=== PATIENT | female | born 1960 | race Caucasian/White ===

== ENCOUNTER 2021-08-13 16:31 | Inpatient (IN) ==
[2021-08-13] MEDS ORDERED: *HR* Ticagrelor 90 MG TABLET PO ONE (16:37)
[2021-08-13] MEDS ORDERED: *HR* Heparin 5,000 UNIT/ML VIAL IVP ONE (16:37)
[2021-08-13] MEDS ORDERED: *HR* Heparin 5,000 UNIT/ML VIAL IVP PRN ×2 (16:37)
[2021-08-13] MEDS ORDERED: Heparin 25,000UNIT/250ML 1/2NS 25,000 UNIT/250 ML IV.SOLN IVC SCH (16:45)
[2021-08-13 16:51] LABS: Basophils # 0.1 K/mcL (0.0-0.2); Basophils % 0.7 %; Eosinophils # 0.1 K/mcL (0.0-0.6); Hematocrit 49.9 % (35.3-44.9); Hemoglobin 16.4 g/dL (11.5-15.4); Immature Granulocytes % 0.4 % (0-4); Lymphocytes # 2.8 K/mcL (0.6-4.6); Lymphocytes % 21.5 %; Mean Corpuscular HGB Conc 32.9 g/dL (31.6-35.5); Mean Corpuscular Hemoglobin 32.1 pg (28.0-33.3); Mean Corpuscular Volume 97.7 fL (83.0-100.0); Monocytes # 0.6 K/mcL (0.0-1.3); Monocytes % 4.4 %; Neutrophils # 9.5 K/mcL (1.6-8.9); Platelet Count 269 K/mcL (140-400); Red Blood Count 5.11 M/mcL (3.82-4.97); White Blood Count 13.1 K/mcL (4.3-11.1)
[2021-08-13 16:58] LABS: Prothrombin Time 10.9 Seconds (9.4-12.1)
[2021-08-13] MEDS ORDERED: Heparin 1,000 UNITS/500 mL 500 ML ONE (17:01)
[2021-08-13] MEDS ORDERED: Nitroglycerin 1,000 MCG/5 ML VIAL IV ONE (17:01)
[2021-08-13] MEDS ORDERED: Iopamidol - 370 200 ML INFUS..BTL ONE (17:01)
[2021-08-13] MEDS ORDERED: *HR* Heparin 10,000 UNIT/10 ML VIAL ONE (17:01)
[2021-08-13] MEDS ORDERED: 0.9 % Sodium Chloride 1,000 ML ONE ×3 (17:01→18:12)
[2021-08-13 17:11] LABS: Calcium 8.8 mg/dL (8.6-10.3); Magnesium 2.1 mg/dL (1.6-2.6); Potassium 4.4 mEq/L (3.5-5.1)
[2021-08-13] MEDS ORDERED: *HR* FentaNYL (PF) 100 MCG/2 ML VIAL ONE (17:11)
[2021-08-13] MEDS ORDERED: *HR* Midazolam HCl 2 MG/2 ML VIAL ONE (17:11)
[2021-08-13] MEDS ORDERED: methylPREDNISolone 125 MG/2 ML VIAL ONE (17:12)
[2021-08-13 17:18] LABS: Troponin I 0.05 ng/mL (< 0.04)
[2021-08-13] MEDS ORDERED: *HR* Atropine Sulfate 1 MG/10 ML SYRINGE ONE (17:33)
[2021-08-13] MEDS ORDERED: Tirofiban 12.5 MG/250ML 12.5 MG/250 ML BAG ONE (17:35)
[2021-08-14] MEDS ORDERED: Perflutren Lipid Microsphere 1.3 ML in 0.9 % Sodium Chloride 8.7 ML IVP PRN (08:16)
[2021-08-14] MEDS ORDERED: Naloxone 0.4 MG/ML INJ IVP PRN (08:17)
[2021-08-14] MEDS: *HR* Ticagrelor 90 MG TABLET PO SCH ×2 (09:33→20:08)
[2021-08-14] MEDS: *HR* Heparin 5,000 UNIT/ML VIAL SQ SCH ×2 (09:33→17:45)
[2021-08-14] MEDS: Aspirin Enteric Coated 81 MG Tablet PO SCH (09:33)
[2021-08-14] MEDS: Nicotine 21 MG PATCH.TD24 TD SCH (16:33)
[2021-08-15] MEDS: *HR* Heparin 5,000 UNIT/ML VIAL SQ SCH ×2 (05:31→17:36)
[2021-08-15] MEDS: Aspirin Enteric Coated 81 MG Tablet PO SCH (07:46)
[2021-08-15] MEDS: *HR* Ticagrelor 90 MG TABLET PO SCH ×2 (07:46→21:42)
[2021-08-15] MEDS: Nicotine 21 MG PATCH.TD24 TD SCH (07:46)
[2021-08-15 08:06] LABS: Basophils % 0.2 %; Eosinophils % 0.3 %; Hematocrit 46.8 % (35.3-44.9); Hemoglobin 15.1 g/dL (11.5-15.4); Immature Granulocytes % 0.4 % (0-4); Lymphocytes # 2.2 K/mcL (0.6-4.6); Lymphocytes % 16.2 %; Mean Corpuscular HGB Conc 32.3 g/dL (31.6-35.5); Mean Corpuscular Hemoglobin 31.4 pg (28.0-33.3); Mean Corpuscular Volume 97.3 fL (83.0-100.0); Mean Platelet Volume 10.9 fL (9.4-12.4); Monocytes # 0.9 K/mcL (0.0-1.3); Monocytes % 6.2 %; Neutrophils # 10.4 K/mcL (1.6-8.9); Platelet Count 229 K/mcL (140-400); Red Blood Count 4.81 M/mcL (3.82-4.97); Red Cell Distribution Width 13.2 % (11.5-14.5); Segmented Neutrophils % 76.7 %; White Blood Count 13.6 K/mcL (4.3-11.1)
[2021-08-15 08:51] LABS: Alanine Aminotransferase 28 Units/L (7-52); Albumin 3.8 g/dL (3.5-5.7); Albumin/Globulin Ratio 1.7 (1.1-2.2); Alkaline Phosphatase 52 Units/L (34-104); Aspartate Amino Transferase 66 Units/L (13-39); BUN/Creatinine Ratio 18 (6-26); Blood Urea Nitrogen 17 mg/dL (8-23); Calcium 9.1 mg/dL (8.6-10.3); Carbon Dioxide 25 mEq/L (23-29); Chloride 108 mEq/L (98-107); Chol/HDL Ratio 5.1 (0-4.9); Cholesterol 218 mg/dL (< 200); Globulin 2.3 g/dL (2.4-3.5); Glucose 101 mg/dL (70-105); HDL Cholesterol 43 mg/dL (40-59); LDL Cholesterol,Calculated 138 mg/dL (< 100); Osmolality,Calculated 292 (280-300); Sodium 140 mEq/L (136-145); Total Protein 6.1 g/dL (6.4-8.9); Triglycerides 187 mg/dL (< 150); eGFR For African Americans > 60 (> 60); eGFR For Non-African Americans 59 (> 60)
[2021-08-15] MEDS ORDERED: Naloxone 0.4 MG/ML INJ IVP PRN (16:49)
[2021-08-16] MEDS: *HR* Heparin 5,000 UNIT/ML VIAL SQ SCH ×2 (06:13→16:51)
[2021-08-16] MEDS: Aspirin Enteric Coated 81 MG Tablet PO SCH (08:30)
[2021-08-16] MEDS: *HR* Ticagrelor 90 MG TABLET PO SCH ×2 (08:30→21:15)
[2021-08-16] MEDS: Nicotine 21 MG PATCH.TD24 TD SCH (08:31)
[2021-08-16 09:31] LABS: Basophils # 0.1 K/mcL (0.0-0.2); Basophils % 0.6 %; Eosinophils # 0.1 K/mcL (0.0-0.6); Eosinophils % 0.8 %; Hematocrit 48.1 % (35.3-44.9); Hemoglobin 15.9 g/dL (11.5-15.4); Immature Granulocytes % 0.2 % (0-4); Lymphocytes # 1.8 K/mcL (0.6-4.6); Lymphocytes % 17.5 %; Mean Corpuscular HGB Conc 33.1 g/dL (31.6-35.5); Mean Corpuscular Hemoglobin 31.5 pg (28.0-33.3); Mean Corpuscular Volume 95.2 fL (83.0-100.0); Mean Platelet Volume 10.5 fL (9.4-12.4); Monocytes # 0.7 K/mcL (0.0-1.3); Monocytes % 6.8 %; Neutrophils # 7.8 K/mcL (1.6-8.9); Platelet Count 214 K/mcL (140-400); Red Blood Count 5.05 M/mcL (3.82-4.97); Segmented Neutrophils % 74.1 %; White Blood Count 10.5 K/mcL (4.3-11.1)
[2021-08-16 09:51] LABS: BUN/Creatinine Ratio 18 (6-26); Blood Urea Nitrogen 17 mg/dL (8-23); Carbon Dioxide 25 mEq/L (23-29); Chloride 108 mEq/L (98-107); Glucose 91 mg/dL (70-105); Osmolality,Calculated 293 (280-300); Potassium 3.8 mEq/L (3.5-5.1); Sodium 141 mEq/L (136-145); eGFR For African Americans > 60 (> 60); eGFR For Non-African Americans 60 (> 60)
[2021-08-16] MEDS ORDERED: lisinopriL 5 MG TABLET PO SCH (11:30)
[2021-08-16] MEDS ORDERED: lisinopriL 5 MG TABLET PO ONE (14:15)
[2021-08-17] MEDS: *HR* Heparin 5,000 UNIT/ML VIAL SQ SCH (05:35)
[2021-08-17] MEDS: Aspirin Enteric Coated 81 MG Tablet PO SCH (07:42)
[2021-08-17] MEDS: *HR* Ticagrelor 90 MG TABLET PO SCH (07:42)
[2021-08-17] MEDS: Nicotine 21 MG PATCH.TD24 TD SCH (07:44)
[2021-08-17 07:46] VITALS: BP 146/81; PULSE 68; TEMP 97.9; O2SAT 95
[2021-08-17] MEDS ORDERED: lisinopriL 5 MG TABLET PO SCH (09:00)
== END 2021-08-17 11:45 | disposition home or self-care (01) | DRG 247 ==
LOC: EMEROOARM 16:31 → ICNU 17:20 → 2NNU 08-15 23:49
PROVIDERS: ADMIT Internal Medicine Cardiovascular Disease; ATTEND Internal Medicine Cardiovascular Disease